=== PATIENT | female | born 1950 | race Caucasian/White ===

== ENCOUNTER 2016-05-17 20:13 | Inpatient (IN) | payer MEDICARE, OTHER ==
[~2016-05-17 20:13] MED LIST: AFINITOR10 MG PO; AMITIZA24 MCG PO; AMLODIPINE BESY10 MG PO; CALCIUM 600 +1 EAC7 PO; CATAPRES 0.2MG0.2 MG TOP; CELEXA20 MG PO; CERTAGEN1 EACH PO; CLARITIN10 MG PO; CORTEF10 MG PO; CORTEF5 MG PO; DURAGESIC 50MC50 MCG TD; FEMARA2.5 MG PO; FLONASE ALLER15.8 ML; FLORINEF0.1 MG PO; GARAMYCIN20 DROPS/M OU; IBUPROFEN400 M1 PO; K-PHOS NEUTRAL250 MG PO; KLONOPIN0.5 MG PO; LASIX20 MG PO; MAGNESIUM250 MG PO; MARINOL5 MG PO; MIRAPEX0.25 MG PO; NEURONTIN300 MG PO; NORCO 5-325 TA1 EACH PO; PREVACID15 MG PO; SINGULAIR10 MG PO; STARLIX120 MG PO; SYMBICORT 1601 PUFFS INH; VENTOLIN (2.5 MG/3 M NEB; VITAMIN D1000 UNI1 PO; VOLTAREN100 GM TOP; XANAX0.5 MG PO; ZOFRAN ODT8 MG PO
[2016-05-17 21:27] LABS: BASOPHIL 0.3 % (0-2); EOSINOPHIL 0.5 % (0-7); HCT 40.9 % (37.0-47.0); HGB 13.9 g/dl (12.5-16.0); LYMPHOCYTE 12.6 % (15-48); MCH 26.4 pg (25.0-31.0); MCV 77.6 fL (78.0-100.0); MONOCYTE 13.5 % (0-12); MPV 8.2 fL (6.0-9.5); NEUTROPHIL 73.1 % (41-80); PLT 302 K/uL (150-400); RBC 5.27 M/uL (4.20-5.40); RDW 14.3 % (11.5-14.0); WBC 7.6 K/uL (4.0-10.5)
[2016-05-17 21:46] LABS: ALBUMIN 4.2 g/dL (3.4-4.8); CREATININE 0.6 mg/dL (0.5-1.0); GLOBULIN (CALCULATION) 2.3 g/dL (2.2-4.2); POTASSIUM 4.2 mmol/L (3.5-5.1); TOTAL PROTEIN 6.5 g/dL (6.4-8.3)
[2016-05-17 23:13] LABS: BILIRUBIN NEGATIVE (NEGATIVE); BLOOD NEGATIVE Ery/uL (NEGATIVE); CLARITY HAZY (CLEAR); COLOR YELLOW (YELLOW); GLUCOSE (U) NORMAL (NORMAL); KETONE (U) 1+ (SMALL) mg/dL (NEGATIVE); LEUKOCYTES NEGATIVE Leu/uL (NEGATIVE); NITRITE NEGATIVE (NEGATIVE); PROTEIN NEGATIVE (NEGATIVE); pH 7.5 (5.0-9.0)
[2016-05-18 07:32] LABS: HCT 38.8 % (37.0-47.0); HGB 13.1 g/dl (12.5-16.0); MCH 26.3 pg (25.0-31.0); MCHC 33.8 g/dL (32.0-36.0); MCV 77.9 fL (78.0-100.0); RBC 4.98 M/uL (4.20-5.40); RDW 14.2 % (11.5-14.0); WBC 6.7 K/uL (4.0-10.5)
[2016-05-18 07:54] LABS: CREATININE 0.5 mg/dL (0.5-1.0)
[2016-05-19 04:57] LABS: BASOPHIL 0.3 % (0-2); EOSINOPHIL 0.6 % (0-7); HGB 13.3 g/dl (12.5-16.0); LYMPHOCYTE 12.2 % (15-48); MCH 26.7 pg (25.0-31.0); MCHC 34.1 g/dL (32.0-36.0); MCV 78.2 fL (78.0-100.0); MONOCYTE 12.7 % (0-12); MPV 8.3 fL (6.0-9.5); NEUTROPHIL 74.2 % (41-80); PLT 271 K/uL (150-400); RBC 4.99 M/uL (4.20-5.40); RDW 14.5 % (11.5-14.0); WBC 6.6 K/uL (4.0-10.5)
[2016-05-19 05:10] LABS: CREATININE 0.5 mg/dL (0.5-1.0); POTASSIUM 3.8 mmol/L (3.5-5.1)
--- NOTE | 2016-05-19 06:28 | NUR ---
@0628 KLONOPIN PO GIVEN FOR PANIC ATTACK, @0645 LOPRESSOR IV GIVEN FOR B/P 167/101, HR-143. @ 0650 B/P 153/91, HR107 @ 0655 B/P 159/87, HR 107 FAMILY AT BEDSIDE PT IS CALMING DOWN.
--- NOTE | 2016-05-19 09:54 | NUR ---
PATIENT'S ASKED FOR THE NURSE TO COME AND SEE HIM, THE PATIENT WAS BREATHING VERY SHALLOW AND RASPY, PATIENT WAS SAT UP WITH O24L BY MASK AND RAPID RESPONSE WAS CALL, PATIENT WAS NOT AROUSEABLE. AT 0905, NARCAN 0.4MG IV WAS GIVEN AT 0905, 12 LEAS EKG, XRAY, ABG. HR 155 BP 201/101, FENTYNAL PATCH REMOVED AT 909, 15 BP 161/86 HR 105, PATIENT WAS TRANSFERED TO TCU AT 09 REPORT GIVEN TO SHARATH
[2016-05-20 04:13] LABS: HGB 12.5 g/dl (12.5-16.0); MCH 26.4 pg (25.0-31.0); MCHC 33.8 g/dL (32.0-36.0); MCV 78.2 fL (78.0-100.0); MPV 7.9 fL (6.0-9.5); RBC 4.73 M/uL (4.20-5.40); RDW 14.4 % (11.5-14.0); WBC 6.5 K/uL (4.0-10.5)
[2016-05-20 04:33] LABS: CREATININE 0.4 mg/dL (0.5-1.0); MAGNESIUM 2.1 mg/dL (1.40-2.10); PHOSPHORUS 1.7 mg/dL (2.7-4.5); POTASSIUM 3.5 mmol/L (3.5-5.1)
--- NOTE | 2016-05-20 14:19 | NUR ---
AT 12:15 FAMILY MEMBER CALLED OUT, PT HAD FALLEN OFF BSC. UPON ENTRY INTO ROOM PT WAS LAYING ON LEFT SIDE, BESIDE THE BSC. PT STATED SHE TRIED TO STAND UP TO CLEAN HERSELF AND LOST BALANCE. PT ALERT AND ORIENTED AND HAD BEEN CALLING OUT ALL DAY FOR HELP ON AND OFF THE BSC. PT DENIED HITTING HER HEAD. DENIED PAIN ANYWHERE. ASSISTED TO SITTING POSITION. VS FOLLOWS: BP 143/76, HR 121, SAT 98% ON RA, ABLE TO MOVE ALL EXTEMITES WITHOUT PAIN. THEN ASSISTED TO STANDING POSITION AND SITTING TO SIT ON SIDE OF BED. THOUROG ASSESSMENT TO SKIN REVEALED AN ABRASION TO THE LEFT KNEE. CONTINUES TO DENY PAIN, ABLE TO MOVE ALL EXTREMITIES. NOTIFIED, NO ORDRS GIVEN.
[2016-05-21 04:20] LABS: HCT 39.7 % (37.0-47.0); HGB 13.4 g/dl (12.5-16.0); MCH 26.4 pg (25.0-31.0); MCHC 33.8 g/dL (32.0-36.0); MCV 78.1 fL (78.0-100.0); MPV 8.4 fL (6.0-9.5); RBC 5.08 M/uL (4.20-5.40); RDW 14.8 % (11.5-14.0)
[2016-05-21 04:34] LABS: CREATININE 0.4 mg/dL (0.5-1.0); POTASSIUM 3.6 mmol/L (3.5-5.1)
[2016-05-23 05:40] LABS: HCT 38.2 % (37.0-47.0); HGB 13.2 g/dl (12.5-16.0); MCH 26.3 pg (25.0-31.0); MCHC 34.6 g/dL (32.0-36.0); MCV 76.2 fL (78.0-100.0); MPV 8.8 fL (6.0-9.5); RBC 5.01 M/uL (4.20-5.40); RDW 14.8 % (11.5-14.0); WBC 6.8 K/uL (4.0-10.5)
[2016-05-23 05:52] LABS: CREATININE 0.3 mg/dL (0.5-1.0)
--- NOTE | 2016-05-24 14:33 | NUR ---
REVIEWED DISCHARGE INSTRUCTIONS, HOSPICE INFORMATION WITH PT AND SPOUSE
== END 2016-05-24 14:53 | disposition hospice, home (50) | DRG 392 ==
LOC: FER 20:13 → FMS 05-18 01:20 → FTCU 05-19 09:28 → FMS 05-20 12:00
PROVIDERS: Internal Medicine; Internal Medicine Nephrology; Nurse Practitioner Family; ADMIT Internal Medicine
DX: R11.2 Nausea with vomiting, unspecified (principal); C78.00 Secondary malignant neoplasm of unspecified lung; C79.31 Secondary malignant neoplasm of brain; C79.51 Secondary malignant neoplasm of bone; E27.40 Unspecified adrenocortical insufficiency; C79.71 Secondary malignant neoplasm of right adrenal gland; K59.00 Constipation, unspecified; C50.912 Malignant neoplasm of unspecified site of left female breast; Z90.710 Acquired absence of both cervix and uterus; I97.2 Postmastectomy lymphedema syndrome; E11.9 Type 2 diabetes mellitus without complications; G25.81 Restless legs syndrome; F32.9 Major depressive disorder, single episode, unspecified; Z86.73 Personal history of transient ischemic attack (TIA), and cerebral infarction without residual deficits; E78.00 Pure hypercholesterolemia, unspecified; J45.909 Unspecified asthma, uncomplicated; N39.3 Stress incontinence (female) (male); Z88.0 Allergy status to penicillin; Z88.2 Allergy status to sulfonamides; Z88.1 Allergy status to other antibiotic agents; Z88.5 Allergy status to narcotic agent; Z80.9 Family history of malignant neoplasm, unspecified; G89.3 Neoplasm related pain (acute) (chronic)
CPT/HCPCS: 36415; 36600; 70450; 71010; 74022; 80048; 80053; 81003; 82803; 82962; 83690; 83735; 84100; 85025; 87804; 87899; 93005; 94640; 94760; 94762; 96372; 97110; 97116; 97163; 97167; 97530-GP; 97535; C9113; G0378; J1100; J1170; J2212; J2310; J2405; J2765; J9999

== ENCOUNTER 2016-05-28 13:35 | Emergency (ER) | payer MEDICARE, OTHER ==
[2016-05-28 17:19] LABS: BASOPHIL 0.3 % (0-2); EOSINOPHIL 0.9 % (0-7); HCT 40.9 % (37.0-47.0); HGB 13.9 g/dl (12.5-16.0); LYMPHOCYTE 11.8 % (15-48); MCH 26.6 pg (25.0-31.0); MCV 78.4 fL (78.0-100.0); MONOCYTE 8.3 % (0-12); MPV 8.5 fL (6.0-9.5); NEUTROPHIL 78.7 % (41-80); PLT 200 K/uL (150-400); RBC 5.22 M/uL (4.20-5.40); RDW 15.4 % (11.5-14.0); WBC 7.4 K/uL (4.0-10.5)
[2016-05-28 17:47] LABS: ALBUMIN 4.1 g/dL (3.4-4.8); BILIRUBIN - TOTAL 0.8 mg/dL (0.1-1.0); CREATININE 0.4 mg/dL (0.5-1.0); GLOBULIN (CALCULATION) 2.1 g/dL (2.2-4.2); POTASSIUM 3.9 mmol/L (3.5-5.1); TOTAL PROTEIN 6.2 g/dL (6.4-8.3)
[2016-05-28 18:23] LABS: BILIRUBIN 1+ mg/dL (NEGATIVE); BLOOD NEGATIVE Ery/uL (NEGATIVE); CLARITY CLEAR (CLEAR); COLOR YELLOW (YELLOW); GLUCOSE (U) NORMAL (NORMAL); KETONE (U) 3+ (LARGE) mg/dL (NEGATIVE); LEUKOCYTES NEGATIVE Leu/uL (NEGATIVE); NITRITE NEGATIVE (NEGATIVE); PROTEIN NEGATIVE (NEGATIVE)
== END 2016-05-28 19:19 | disposition home or self-care (01) ==
LOC: FER 13:35
PROVIDERS: Internal Medicine
DX: R11.10 Vomiting, unspecified (principal); C50.919 Malignant neoplasm of unspecified site of unspecified female breast; G89.29 Other chronic pain; K21.9 Gastro-esophageal reflux disease without esophagitis; E11.9 Type 2 diabetes mellitus without complications; I10 Essential (primary) hypertension; F32.9 Major depressive disorder, single episode, unspecified; Z79.899 Other long term (current) drug therapy; Z88.0 Allergy status to penicillin; Z88.2 Allergy status to sulfonamides; Z88.5 Allergy status to narcotic agent; Z88.1 Allergy status to other antibiotic agents
CPT/HCPCS: 36415; 80053; 81003; 82150; 83690; 85025; J1170; J2765

== ENCOUNTER 2016-05-30 00:32 | Emergency (ER) | payer MEDICARE, OTHER | END 2016-05-30 03:49 | disposition home or self-care (01) | LOC: FER 00:32 | DX: M79.604 Pain in right leg (principal); M79.605 Pain in left leg; C79.81 Secondary malignant neoplasm of breast; C80.1 Malignant (primary) neoplasm, unspecified; Z88.0 Allergy status to penicillin; Z88.2 Allergy status to sulfonamides; Z88.5 Allergy status to narcotic agent; Z79.899 Other long term (current) drug therapy | CPT/HCPCS: J1170; J2405 ==